=== PATIENT | female | born 1955 | race Caucasian/White ===

== ENCOUNTER 2023-11-11 10:00 | Inpatient (IN) ==
[2023-11-11 13:17] LABS: Hematocrit 48.5 % (35-45); Hemoglobin 16.3 g/dL (11.5-14.3); Mean Corpuscular Hemoglobin 28.2 pg (27-33); Mean Corpuscular Hgb Conc 33.6 g/dL (31-36); Mean Platelet Volume 7.9 fL (7.5-11.2); Platelet Count 196 10^3/uL (150-450); Red Blood Count 5.77 10^6/uL (3.63-4.92); Red Cell Distribution Width 14.1 % (12-17); White Blood Count 21.7 10^3/uL (3.8-11.8)
[2023-11-11] MEDS: Acetaminophen IV 1 GM/100ML 1,000 MG/100 ML BAG IV ONE (13:19)
[2023-11-11 13:56] LABS: ABS Basophils 0.1 10^3/uL (0.0-0.1); ABS Monocytes 1.7 10^3/uL (0.0-0.9); ABS Neutrophils 18.8 10^3/uL (1.5-7.6); ABS Nucleated RBC 0.05 10^3/ul; Lymphocyte % 4.8 %; Nucleated Red Blood Cells % 0.2 %/100WBC (0.0-0.8)
[2023-11-11 14:12] LABS: ALT 18 U/L (7-52); Albumin 4.7 g/dL (3.2-5.2); Albumin/Globulin Ratio 1.7 (1-3); Alkaline Phosphatase 80 U/L (35-149); Anion Gap 8 mmol/L (2-16); Blood Urea Nitrogen 18 mg/dL (6-24); CO2 Carbon Dioxide 29 mmol/L (22-32); Calcium 11.2 mg/dL (8.6-10.3); Chloride 100 mmol/L (101-111); Creatinine, Serum 0.93 mg/dL (0.51-0.95); Globulin 2.7 g/dL (2-4); Glucose 115 mg/dL (70-100); Lipase 20 U/L (11.0-82.0); Sodium 137 mmol/L (135-145); Total Bilirubin 1.5 mg/dL (0.2-1.0); Total Protein 7.4 g/dL (6.4-8.9); eGFR CKD-EPI 67.8 (>60)
[2023-11-11] MEDS: Iohexol 350 (CONTRAST) 500 ML MDV IV ONE (14:33)
[2023-11-11] MEDS: Iodixanol (CONTRAST) 320 MG/ML 100 ML SDV IV ONE (14:34)
[2023-11-11] MEDS: metroNIDAZOLE IV 500 MG/100ML 500 MG/100 ML BAG IVPB ONE (15:27)
[2023-11-11] MEDS: Lactated Ringers 1000 ml BAG 1,000 ML IV ONE (15:32)
[2023-11-11 15:59] LABS: Urine Appearance Clear; Urine Bilirubin Negative (Negative); Urine Blood Negative (Negative); Urine Color Yellow; Urine Glucose Negative (Negative); Urine Ketones Negative (Negative); Urine Nitrite Negative (Negative); Urine Protein Trace (Negative); Urine Specific Gravity >1.050 (1.002-1.030); Urine Urobilinogen Negative (Negative)
[2023-11-11] MEDS: Morphine 4 MG/ML VIAL (1 ml) IV ONE (16:31)
[2023-11-11] MEDS: Ciprofloxacin 400mg IVPREMIX 400 MG/200 ML BAG IVPB ONE (16:35)
[2023-11-11] MEDS: Lactated Ringers 1000 ml BAG 1,000 ML IV SCH (17:57)
[2023-11-11] MEDS ORDERED: metroNIDAZOLE IV 500 MG/100ML 500 MG/100 ML BAG IVPB SCH ×2 (19:00→23:30)
[2023-11-11] MEDS: Enoxaparin 40 MG/0.4 ML SYR SUBCUT SCH (22:00)
[2023-11-11] MEDS: metroNIDAZOLE IV 500 MG/100ML 500 MG/100 ML BAG IVPB SCH (22:11)
[2023-11-12] MEDS: Ciprofloxacin 400mg IVPREMIX 400 MG/200 ML BAG IVPB SCH (04:52)
[2023-11-12 05:22] LABS: Hematocrit 42.7 % (35-45); Hemoglobin 14.2 g/dL (11.5-14.3); Mean Corpuscular Hemoglobin 28.3 pg (27-33); Mean Corpuscular Hgb Conc 33.3 g/dL (31-36); Mean Platelet Volume 8.4 fL (7.5-11.2); Platelet Count 157 10^3/uL (150-450); Red Blood Count 5.03 10^6/uL (3.63-4.92); Red Cell Distribution Width 14.4 % (12-17); White Blood Count 19.1 10^3/uL (3.8-11.8)
[2023-11-12 05:42] LABS: Creatinine, Serum 0.81 mg/dL (0.51-0.95); Potassium 3.8 mmol/L (3.5-5.0)
[2023-11-12 07:02] LABS: ABS Basophils 0.1 10^3/uL (0.0-0.1); ABS Lymphocytes 1.1 10^3/uL (1.0-4.8); ABS Monocytes 1.8 10^3/uL (0.0-0.9); ABS Neutrophils 16.1 10^3/uL (1.5-7.6); ABS Nucleated RBC 0.01 10^3/ul; Eosinophil % 0.1 %; Nucleated Red Blood Cells % 0.1 %/100WBC (0.0-0.8)
[2023-11-12] MEDS: Cholecalciferol (VIT D3) 1,000 unit TAB PO SCH (08:05)
[2023-11-12] MEDS: HYDROmorphone 0.5 MG/0.5 ML SYRINGE IV SLOW PU PRN (08:51)
[2023-11-12] MEDS: Ondansetron 4 mg VIAL 2 MG/ML 2 ml VIAL IV PRN (18:26)
[2023-11-14 06:27] LABS: ABS Eosinophils 0.1 10^3/uL (0.0-0.5); ABS Lymphocytes 1.2 10^3/uL (1.0-4.8); ABS Monocytes 1.3 10^3/uL (0.0-0.9); ABS Neutrophils 10.9 10^3/uL (1.5-7.6); ABS Nucleated RBC 0.01 10^3/ul; Eosinophil % 0.5 %; Hematocrit 39.6 % (35-45); Hemoglobin 13.1 g/dL (11.5-14.3); Lymphocyte % 9.1 %; Mean Corpuscular Hemoglobin 28.1 pg (27-33); Mean Corpuscular Volume 85.3 fL (80-97); Nucleated Red Blood Cells % 0.1 %/100WBC (0.0-0.8); Platelet Count 157 10^3/uL (150-450); Red Blood Count 4.65 10^6/uL (3.63-4.92); Red Cell Distribution Width 13.9 % (12-17); White Blood Count 13.5 10^3/uL (3.8-11.8)
[2023-11-14 06:46] LABS: Calcium 9.7 mg/dL (8.6-10.3); Creatinine, Serum 0.73 mg/dL (0.51-0.95); Potassium 3.5 mmol/L (3.5-5.0); eGFR CKD-EPI 90.6 (>60)
[2023-11-14 10:26] VITALS: BP 165/91
== END 2023-11-14 12:30 | disposition home or self-care (01) | DRG 392 ==
LOC: ED 10:00 → EDHOLD 16:18 → SSU 17:42
PROVIDERS: ADMIT Surgery; ATTEND Surgery